=== PATIENT | female | born 1995 | race Caucasian/White ===

== ENCOUNTER 2017-09-12 09:39 | Emergency (ER) | payer OTHER ==
[~2017-09-12] VITALS: Ht 160 cm; Wt 59.1 kg
[2017-09-12 09:56] VITALS: Ht 160 cm; Wt 59.1 kg
[2017-09-12 10:47] LABS: APPEARANCE CLEAR (CLEAR); BILIRUBIN NEGATIVE (NEGATIVE); COLOR YELLOW (YELLOW); GLUCOSE NEGATIVE (NEGATIVE); KETONE NEGATIVE (NEGATIVE); NITRITE NEGATIVE (NEGATIVE); PROTEIN NEGATIVE (NEGATIVE); UROBILINOGEN NORMAL (NORMAL)
[2017-09-12 10:48] LABS: BASOPHILS 0.5 % (0-2); EOSINOPHILS 1.4 % (0-7); HEMATOCRIT 36.7 % (36.0-48.0); HEMOGLOBIN 12.6 g/dL (12-16); LYMPHOCYTES 31.4 % (15-50); MCHC 34.3 g/dL (31.0-37.0); MCV 87.4 fL (80.0-100.0); NEUTROPHILS 54.7 % (40-80); PLATELET COUNT 241 10x3/uL (130-400); RDW 12.2 % (11.5-14.5); WBC 4.4 10x3/uL (4.8-10.8)
[2017-09-12 10:49] LABS: BACTERIA FEW /hpf (NONE SEEN); MUCUS <1+ /lpf (NONE SEEN); RED CELLS - URINE 0-5 /hpf (0-5); WHITE CELLS - URINE 0-5 /hpf (0-5)
[2017-09-12 11:12] LABS: HCG SERUM NEGATIVE (NEGATIVE)
[2017-09-12] MEDS ORDERED: NAPROSYN500 MG PO (11:31)
[2017-09-12 11:46] VITALS: BP 120/098
== END 2017-09-12 11:46 | disposition home or self-care (01) ==
LOC: D.ER 09:39
PROVIDERS: Family Medicine
DX: N94.6 Dysmenorrhea, unspecified (principal)